=== PATIENT | female | born 1965 | race Caucasian/White ===

== ENCOUNTER 2019-01-07 20:48 | Emergency (ER) | payer MEDICAID, OTHER ==
[~2019-01-07] VITALS: Ht 157.5 cm; Wt 70.4 kg
[2019-01-07 20:56] VITALS: Ht 157.5 cm; Wt 70.4 kg
--- NOTE | 2019-01-07 20:58 | EN ---
Date/Time of Note Date/Time of Note DATE: 01/07/19 TIME: 20:56 ER Progress Note MSE in ED 3. Burning painful upper back rash for the last day. Exam shows rash to be bilateral and not in dermatomal distribution. Will send to ED to for medication. STEPHANIE REYNOLDS MD January 07, 2019 20:58
[2019-01-07] MEDS ORDERED: ACYC800T5 PO (23:52)
[2019-01-07] MEDS ORDERED: TRAM50TA2 PO (23:52)
[2019-01-07] MEDS ORDERED: NAPR-985 PO (23:52)
[2019-01-07] MEDS ORDERED: KETOROLAC 30 MG INJ IM STA (23:53)
[2019-01-07] MEDS ORDERED: CLIN300C10 PO (23:57)
--- NOTE | 2019-01-08 00:06 | ERD ---
ER Documentation Chief Complaint Chief Complaint PAINFUL, BURNING RASH ON BACK X'S 1 DAY HPI 53-year-old female with past medical history of prediabetes, osteoporosis who presents with complaint of painful burning rash to upper back over the past day. States she noticed blistering to area with clear discharge from ruptured blisters that is very pruritic. Rashes to bilateral upper back. Denies previous history of shingles. She otherwise denies fevers, chills, other areas of rash, recent illness, recent travel, environmental exposures, allergies, use of new skin products. She denies prodrome of headache, malaise, photophobia. She is otherwise without symptoms or complaints. ROS All systems reviewed and are negative except as per history of present illness. Medications Home Meds Active Scripts Clindamycin Hcl* (Clindamycin Hcl*) 300 Mg Capsule, 300 MG PO QID for 7 Days, CAP Prov:JEUDINE,GETHO PA-C 01/07/19 Naproxen* (Naprosyn*) 500 Mg Tablet, 500 MG PO BID PRN for PAIN AND/OR INFLAMMATION, #30 TAB Prov:JEUDINE,GETHO PA-C 01/07/19 Tramadol HCl (Tramadol HCl) 50 Mg Tablet, 50 MG PO Q6 PRN for PAIN, #20 TAB Prov:JEUDINE,GETHO PA-C 01/07/19 Acyclovir* (Zovirax*) 800 Mg Tablet, 800 MG PO 5 TIMES DAILY for 7 Days, TAB Prov:JEUDINE,GETHO PA-C 01/07/19 Allergies Allergies: Coded Allergies: No Known Allergy (Unverified , 01/07/19) PMhx/Soc History of Surgery: Yes (Ovaries, L mastectomy) Anesthesia Reaction: No Hx Neurological Disorder: No Hx Respiratory Disorders: No Hx Cardiac Disorders: No Hx Psychiatric Problems: No Hx Miscellaneous Medical Probl: Yes (Breast CA survivor) Hx Alcohol Use: No Hx Substance Use: No Hx Tobacco Use: No Smoking Status: Never smoker FmHx Family History: No diabetes, No coronary disease, No other Physical Exam Vitals Vital Signs Date Temp Pulse Resp B/P (MAP) Pulse Ox O2 O2 Flow FiO2 Time Delivery Rate 01/07/19 97.0 90 20 138/63 98 20:56 (88) Physical Exam Const: No acute distress Head: Atraumatic Eyes: Normal Conjunctiva ENT: Normal External Ears, Nose and Mouth. Neck: Full range of motion. No meningismus. Resp: Clear to auscultation bilaterally Cardio: Regular rate and rhythm, no murmurs Abd: Soft, non tender, non distended. Normal bowel sounds Skin: Upper back with maculopapular rash with areas of blistering, tender to palpation, rash extending bilaterally crossing midline Back: No midline or flank tenderness Ext: No cyanosis, or edema Neur: Awake and alert Psych: Normal Mood and Affect Results 24 hrs Current Medications Medications Dose Sig/Davida Start Time Status Last (Trade) Ordered Route PRN Stop Time Admin Dose Reason Admin Ketorolac 30 mg ONCE STAT 01/07/19 DC Tromethamine IM 23:53 (Toradol) 01/07/19 23:54 Procedures/MDM 53-year-old female who presents with rash to upper back. Initial concern for shingles but rash not classic dermatomal pattern and crosses the midline. Shows no signs or symptoms of systemic infection. I have low suspicion for acute infection warranting further emergent work-up or care. We will treat her for presumed cellulitis with clindamycin. Will also Rx course of acyclovir just in case this is atypical shingles/classical shingles with developing overlying cellulitis. Appropriate pain medications. Patient instructed to follow-up with PMD. Patient expressing understanding and states she will make appointment tomorrow. Strict return precautions explained in detail. DISPOSITION PLAN: We discussed follow up with the patient's primary care doctor within 24 to 48 hours. Patient counseled regarding my diagnostic impression and care plan. Prior to discharge all questions answered. Pt agrees with treatment plan and understands strict return precautions. Precautionary instructions provided including instructions to return to the ER if not improving or for any worsening or changing symptoms or concerns. Disclaimer: Inadvertent spelling and grammatical errors are likely due to EHR/dictation software use and do not reflect on the overall quality of patient care. Also, please note that the electronic time recorded on this note does not necessarily reflect the actual time of the patient encounter. Departure Diagnosis: Primary Impression: Rash Condition: Stable Patient Instructions: Shingles (Herpes Zoster) Referrals: COMMUNITY CLIN[facility] YOU HAVE RECEIVED A MEDICAL SCREENING EXAM AND THE RESULTS INDICATE THAT YOU DO NOT HAVE A CONDITION THAT REQUIRES URGENT TREATMENT IN THE EMERGENCY DEPARTMENT. FURTHER EVALUATION AND TREATMENT OF YOUR CONDITION CAN WAIT UNTIL YOU ARE SEEN IN YOUR DOCTORS OFFICE WITHIN THE NEXT 1-2 DAYS. IT IS YOUR RESPONSIBILITY TO MAKE AN APPOINTMENT FOR FOLOW-UP CARE. IF YOU HAVE A PRIMARY DOCTOR --you should call your primary doctor and schedule an appointment IF YOU DO NOT HAVE A PRIMARY DOCTOR YOU CAN CALL OUR PHYSICIAN REFERRAL HOTLINE AT IF YOU CAN NOT AFFORD TO SEE A PHYSICIAN YOU CAN CHOSE FROM THE FOLLOWING [facility] [address] [facility] [address] [employer] [facility] [facility] [address] [facility] [address] [facility] [address] [facility] [facility]. [address] Additional Instructions: Call your primary care doctor TOMORROW for an appointment during the next 2-3 days.See the doctor sooner or return here if your condition worsens before your appointment time. KATELYN SCHROEDER PA-C January 08, 2019 00:06
[2019-01-08 00:30] VITALS: BP 129/57; PULSE 73; RESP 18
== END 2019-01-08 00:31 | disposition home or self-care (01) ==
LOC: FTE 20:48
DX: R21 Rash and other nonspecific skin eruption (principal); Z85.3 Personal history of malignant neoplasm of breast
CPT/HCPCS: 96372; J1885; Z7502